=== PATIENT | female | born 1945 | race Caucasian/White ===

== ENCOUNTER 2018-11-28 05:50 | Emergency (ER) | payer MEDICARE, BC ==
[2018-11-28] MEDS ORDERED: Alum Hydrox/Mag Hydrox/Simeth 30 ML, Lidocaine 2% 15 ML PO ONE ×2 (06:14)
--- NOTE | 2018-11-28 06:14 | EDM.PDOC ---
<Arnoldo Valentin - Last Filed: 11/28/18 07:53> ED HPI GENERAL MEDICAL PROBLEM - General Chief Complaint: Abdominal Pain Stated Complaint: HEARTBURN PAIN Time Seen by Provider: 11/28/18 06:09 - Related Data Allergies Allergy/AdvReac Type Severity Reaction Status Date / Time No Known Allergies Allergy Verified 11/28/18 06:01 Home Meds: Home Meds Levothyroxine Sodium 88 mcg PO DAILY 03/04/14 [History] Alendronate Sodium [Fosamax] 1 tab PO WEEKLY 11/28/18 [History] Hyoscyamine Sulfate [Levsin-Sl] 0.125 mg SL ASDIRECTED #8 tab.subl 11/28/18 [Rx] Course - Vital Signs Last Recorded V/S: Last Vital Signs Temp 36.5 C 11/28/18 05:57 Pulse 78 11/28/18 05:57 Resp 18 11/28/18 05:57 BP 164/90 H 11/28/18 05:57 Pulse Ox 97 11/28/18 05:57 - Orders/Labs/Meds Labs: Laboratory Tests 11/28/18 11/28/18 Range/Units 06:30 06:30 WBC 6.05 (3.98-10.04) K/mm3 RBC 4.56 (3.98-5.22) M/mm3 Hgb 13.9 (11.2-15.7) gm/L Hct 41.9 (34.1-44.9) % MCV 91.9 (79.4-94.8) fl MCH 30.5 (25.6-32.2) pg MCHC 33.2 (32.2-35.5) g/dl RDW Std Deviation 42.7 (36.4-46.3) fL Plt Count 297 (182-369) K/mm3 MPV 9.5 (9.4-12.3) fl Neutrophils % (Manual) 77 H (40-60) % Band Neutrophils % 7 (0-10) % Lymphocytes % (Manual) 13 L (20-40) % Atypical Lymphs % 0 % Monocytes % (Manual) 2 (2-10) % Eosinophils % (Manual) 0 L (0.7-5.8) % Basophils % (Manual) 1 (0.1-1.2) Platelet Estimate Adequate RBC Morph Comment Normal Sodium 135 L (136-145) mEq/L Potassium 4.2 (3.5-5.1) mEq/L Chloride 100 (98-107) mEq/L Carbon Dioxide 24 (21-32) mEq/L Anion Gap 15.2 H (5-15) BUN 13 (7-18) mg/dL Creatinine 1.1 H (0.55-1.02) mg/dL Est Cr Clr Drug Dosing 38.16 mL/min Estimated GFR (MDRD) 48 (>60) mL/min BUN/Creatinine Ratio 11.8 L (14-18) Glucose 128 H (83-115) mg/dL Calcium 9.5 (8.5-10.1) mg/dL Magnesium 1.7 L (1.8-2.4) mg/dl Total Bilirubin 0.4 (0.2-1.0) mg/dL AST 15 (15-37) U/L ALT 19 (14-59) U/L Alkaline Phosphatase 74 (46-116) U/L CK-MB (CK-2) 0.9 (0-3.6) ng/ml Troponin I < 0.017 (0.00-0.056) ng/mL Total Protein 7.6 (6.4-8.2) g/dl Albumin 3.7 (3.4-5.0) g/dl Globulin 3.9 gm/dL Albumin/Globulin Ratio 1.0 (1-2) Lipase 64 L (73-393) U/L Meds: Medications Discontinued Medications Generic Name Dose Route Start Last Admin Trade Name Freq PRN Reason Stop Dose Admin Al Hydroxide/Mg Hydroxide 30 0 ml 11/28/18 06:14 11/28/18 06:30 ml/ Lidocaine HCl 15 ml PO 11/28/18 06:15 45 ml ONETIME ONE Administration Dicyclomine HCl 20 mg 11/28/18 06:49 11/28/18 06:54 Bentyl PO 11/28/18 06:50 20 mg ONETIME ONE Administration Hydromorphone HCl 0.25 mg 11/28/18 06:50 11/28/18 07:52 Dilaudid IVPUSH 11/28/18 06:51 Not Given ONETIME ONE Hyoscyamine 0.125 mg 11/28/18 06:49 11/28/18 06:54 Hyomax-Sl SL 11/28/18 06:50 0.125 mg ONETIME ONE Administration Sodium Chloride 1,000 mls @ 125 mls/hr 11/28/18 06:30 11/28/18 06:30 Normal Saline IV 125 mls/hr ASDIRECTED MELVIN Administration Metoclopramide HCl 7.5 mg 11/28/18 06:49 11/28/18 07:52 Reglan IVPUSH 11/28/18 06:50 Not Given ONETIME ONE - Re-Assessments/Exams Free Text/Narrative Re-Assessment/Exam: 11/28/18 07:34 Labs nondiagnostic. She continues to do well we will discharge on Levsin Departure - Departure Time of Disposition: 07:53 Disposition: Home, Self-Care 01 Clinical Impression: Hiatal hernia with GERD Abdominal pain Qualifiers: Abdominal location: epigastric Qualified Code(s): R10.13 - Epigastric pain - Discharge Information Prescriptions: Hyoscyamine Sulfate [Levsin-Sl] 0.125 mg SL ASDIRECTED #8 tab.subl Instructions: Hiatal Hernia Referrals: Bailee Bacon SOLDER TECHNICIAN [Primary Care Provider] - Forms: ED Department Discharge Additional Instructions: Evaluation the emergency room today in regards to persistent epigastric abdominal pain since 11:00 last night. Relieved by burping and belching. History of reflux disease that is been more frequent as of late. Examination did not reveal any obvious source of the pain. Heart tracing did not show any signs of heart related illness. Chest x-ray was normal. X-ray of the abdomen showed some increased stool in the right hemicolon but no sign of bowel obstruction. The working diagnosis was likely hiatal hernia which means stomach is herniated up into the lower chest cavity. You're treated in the ED with a GI cocktail with no relief of the discomfort. Levsin under the tongue and Bentyl 20 mg by mouth did seem to relieve the discomfort. <Marcelo Jovel - Last Filed: 11/30/18 07:01> ED HPI GENERAL MEDICAL PROBLEM - General Source of Information: Reports: Patient History Limitations: Reports: No Limitations - History of Present Illness INITIAL COMMENTS - FREE TEXT/NARRATIVE: 73-year-old female presents to the ED with persistent epigastric lower retrosternal discomfort since about 2300 hrs. last night. Burping and belching seems to help a little bit. Patient has had more heartburn over the last month or so. She took some Coke middle of the night and did get some extra burping from this. She then vomited a bit of it as well. She is mildly nauseated with the pain. It does not radiate through to her back. Breathing doesn't make it any worse. Is no known history of heart disease. Has known high cholesterol. Has no true odynophagia. Took 6 Tums for relief of the discomfort overnight with no relief. Onset: Gradual Onset Date: 11/27/18 Onset Time: 23:00 Duration: Hour(s):, Constant Location: Reports: Chest, Abdomen (epigastrium) Quality: Reports: Ache, Pressure Severity: Moderate Improves with: Reports: None Worsens with: Reports: None Context: Reports: Other (Spontaneous occurrence). Denies: Activity, Exercise, Lifting, Sick Contact, Trauma Associated Symptoms: Reports: Chest Pain, Loss of Appetite, Malaise, Nausea/ Vomiting (Vomited a small amount of Coke). Denies: Confusion, Cough (Lower retrosternal pressure discomfort. 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 Denies: Fever, Chills, Malaise, Weakness, Fatigue, Weight Loss HEENT: Reports: Glasses Respiratory: Reports: No Symptoms Cardiovascular: Reports: Chest Pain. Denies: Blood Pressure Problem, Claudication (Not usually but blood pressure is elevated upon arrival in the ED. 0.60 4/90), Dyspnea on Exertion, Edema, Lightheadedness, Orthopnea Endocrine: Reports: No Symptoms GI/Abdominal: Reports: Abdominal Pain. Denies: Anorexia, Black Stool, Bloody Stool, Constipation, Diarrhea, Decreased Appetite, Difficulty Swallowing, Distension, Flatus, Hematemesis, Hematochezia, Melena : Reports: Frequency Musculoskeletal: Reports: Joint Pain (Some joint pain knees hips and back.) Skin: Reports: No Symptoms Neurological: Reports: No Symptoms Psychiatric: Reports: No Symptoms Hematologic/Lymphatic: Reports: No Symptoms Immunologic: Reports: No Symptoms ED EXAM, GI/ABD - Physical Exam Exam: See Below Exam Limited By: No Limitations General Appearance: Alert, WD/WN, No Apparent Distress, Other (Vital signs are all stable.) Eyes: Bilateral: Normal Appearance Head: Atraumatic, Normocephalic Neck: Normal Inspection, Supple, Non-Tender, Full Range of Motion. No: Carotid Bruit, Lymphadenopathy (L), Lymphadenopathy (R) Respiratory/Chest: No Respiratory Distress, Lungs Clear, Normal Breath Sounds, No Accessory Muscle Use, Chest Non-Tender Cardiovascular: Normal Peripheral Pulses, Regular Rate, Rhythm, No Edema, No Gallop, No Murmur, No Rub GI/Abdominal Exam: Normal Bowel Sounds, Soft, Non-Tender, No Organomegaly, No Abnormal Bruit, No Mass, Pelvis Stable, Other (No evidence of gallbladder related illness. It is not worsened by deep palpation in the epigastrium.) Extremities: Normal Inspection, Normal Range of Motion, Non-Tender, No Pedal Edema Neurological: Alert, Oriented, CN II-XII Intact, Normal Cognition, Normal Gait Psychiatric: Normal Affect, Normal Mood Skin Exam: Warm, Dry, Intact, Normal Color, No Rash EKG INTERPRETATION EKG Date: 11/28/18 Time: 06:20 Rhythm: NSR Rate (Beats/Min): 74 [place]: LAD-Left [place] Deviation (-25) P-Wave: Present QRS: Other (There is early R-wave transition V2 and then delayed her very poor R -wave progression V3 to V6. There are near Q-wave in lead 3 and a Q-wave in aVF. Consider old inferior wall myocardial infarction. There is decreased voltage in both limb and precordial leads.) ST-T: Other (Some T-wave flattening in lead 3 nonspecific finding.) QT: Prolonged (Borderline prolonged) EKG Interpretation Comments: Abnormal ECG Course - Orders/Labs/Meds Labs: Laboratory Tests 11/28/18 11/28/18 Range/Units 06:30 06:30 WBC 6.05 (3.98-10.04) K/mm3 RBC 4.56 (3.98-5.22) M/mm3 Hgb 13.9 (11.2-15.7) gm/L Hct 41.9 (34.1-44.9) % MCV 91.9 (79.4-94.8) fl MCH 30.5 (25.6-32.2) pg MCHC 33.2 (32.2-35.5) g/dl RDW Std Deviation 42.7 (36.4-46.3) fL Plt Count 297 (182-369) K/mm3 MPV 9.5 (9.4-12.3) fl Neutrophils % (Manual) 77 H (40-60) % Band Neutrophils % 7 (0-10) % Lymphocytes % (Manual) 13 L (20-40) % Atypical Lymphs % 0 % Monocytes % (Manual) 2 (2-10) % Eosinophils % (Manual) 0 L (0.7-5.8) % Basophils % (Manual) 1 (0.1-1.2) Platelet Estimate Adequate RBC Morph Comment Normal Sodium 135 L (136-145) mEq/L Potassium 4.2 (3.5-5.1) mEq/L Chloride 100 (98-107) mEq/L Carbon Dioxide 24 (21-32) mEq/L Anion Gap 15.2 H (5-15) BUN 13 (7-18) mg/dL Creatinine 1.1 H (0.55-1.02) mg/dL Est Cr Clr Drug Dosing 38.16 mL/min Estimated GFR (MDRD) 48 (>60) mL/min BUN/Creatinine Ratio 11.8 L (14-18) Glucose 128 H (83-115) mg/dL Calcium 9.5 (8.5-10.1) mg/dL Magnesium 1.7 L (1.8-2.4) mg/dl Total Bilirubin 0.4 (0.2-1.0) mg/dL AST 15 (15-37) U/L ALT 19 (14-59) U/L Alkaline Phosphatase 74 (46-116) U/L CK-MB (CK-2) 0.9 (0-3.6) ng/ml Troponin I < 0.017 (0.00-0.056) ng/mL Total Protein 7.6 (6.4-8.2) g/dl Albumin 3.7 (3.4-5.0) g/dl Globulin 3.9 gm/dL Albumin/Globulin Ratio 1.0 (1-2) Lipase 64 L (73-393) U/L Meds: Medications Discontinued Medications Generic Name Dose Route Start Last Admin Trade Name Alirioq PRN Reason Stop Dose Admin Al Hydroxide/Mg Hydroxide 30 0 ml 11/28/18 06:14 11/28/18 06:30 ml/ Lidocaine HCl 15 ml PO 11/28/18 06:15 45 ml ONETIME ONE Administration Dicyclomine HCl 20 mg 11/28/18 06:49 11/28/18 06:54 Bentyl PO 11/28/18 06:50 20 mg ONETIME ONE Administration Hydromorphone HCl 0.25 mg 11/28/18 06:50 11/28/18 07:52 Dilaudid IVPUSH 11/28/18 06:51 Not Given ONETIME ONE Hyoscyamine 0.125 mg 11/28/18 06:49 11/28/18 06:54 Hyomax-Sl SL 11/28/18 06:50 0.125 mg ONETIME ONE Administration Sodium Chloride 1,000 mls @ 125 mls/hr 11/28/18 06:30 11/28/18 06:30 Normal Saline IV 125 mls/hr ASDIRECTED MELVIN Administration Metoclopramide HCl 7.5 mg 11/28/18 06:49 11/28/18 07:52 Reglan IVPUSH 11/28/18 06:50 Not Given ONETIME ONE - Radiology Interpretation Free Text/Narrative:: 73-year-old female attends the ED with persistent epigastric lower retrosternal pressure discomfort since 11:00 last night. It started after she went to bed. She never slept the rest of the night because of the discomfort. Burping and belching seems to give her some relief of the discomfort but not total relief. She has a history of GERD and is been more active the last month or so. She took 6 times during the night however with no relief of the discomfort. The pain does not radiate through to her back or into her neck or arms. Her ECG does not show any signs of acute ischemia. Lungs are clear to auscultation percussion. Benign abdominal exam. Clinical suspicion is that of a hiatal hernia that his slid up into her chest. Plan GI cocktail and see if this provides any relief. X-ray of her chest and abdomen to be done one view each routine labs including cardiac markers and serum lipase. Clinically there was no evidence of gallbladder related illness. - Re-Assessments/Exams Free Text/Narrative Re-Assessment/Exam: 11/28/18 06:48 patient reports no relief with the GI cocktail. He is aware of a spasm type pain in the pit of her stomach this is highly suggestive of a hiatal hernia. I will give her a small dose of Dilaudid as she is quite sensitive to pain medication usually causing nausea and vomiting. Will give Reglan 7.5 mg IV first followed by 0.25 mg of Dilaudid. We'll also give her Bentyl 20 mg by mouth aND lEVSIN 0.125MG S/L. 11/28/18 07:07 just as the patient was about to receive the Reglan and Dilaudid she reported that her pain completely went away. Appears that the Levsin under the tongue did the trick. This strongly suggests that it was hiatal hernia pain that caused her discomfort. Care will be turned over to Dr. Valentin as it is change of shift. Chest x-ray is within normal limits. X-ray the hand shows some increased stool in the right hemicolon but no signs of bowel obstruction. Labs are pending. 11/28/18 07:10 Labs reveal a normal white count at 6.05. 77% neutrophils and 7% band cells however. Hemoglobin is 13.9 with hematocrit of 41.9. Reticulocyte count 297,000. Sodium 135 with a potassium of 4.2..[id number] with a bicarbonate 24. And a gap is 15.2. BUNs 13 with a creatinine of 1.1. GFR is 48. Glucose 128. Calcium 9.5. Magnesium is 1.7. Bilirubin 0.4. AST 15 ALT 19 alk phosphatase 74. CK-MB fraction is 0.9 with troponin I of less than 0.017. Lipase is 64 Departure - Departure Condition: Fair - Discharge Information *PRESCRIPTION DRUG MONITORING PROGRAM REVIEWED*: Not Applicable *COPY OF PRESCRIPTION DRUG MONITORING REPORT IN PATIENT DWAIN: Not Applicable
[2018-11-28] MEDS ORDERED: Sodium Chloride 0.9% 1,000 ML IV SCH (06:30)
[2018-11-28] MEDS ORDERED: Hyoscyamine 0.125 MG Tab.SL SL ONE (06:49)
[2018-11-28] MEDS ORDERED: Dicyclomine 10 MG Cap PO ONE (06:49)
[2018-11-28] MEDS ORDERED: Metoclopramide 10 MG/2 ML SDV IVPUSH ONE (06:49)
[2018-11-28] MEDS ORDERED: HYDROmorphone 1 MG/ML Syringe IVPUSH ONE (06:50)
--- NOTE | 2018-11-28 09:28 | CR ---
Abdomen: Supine view of the abdomen was obtained. Comparison: No prior abdominal x-ray. Bowel gas pattern is normal. Bony structures are within normal limits. Calcifications are seen within the pelvis which are compatible with phleboliths. Impression: 1. Nothing acute is seen on supine abdominal x-ray. Diagnostic code #2
--- NOTE | 2018-11-28 09:28 | CR ---
Chest: Frontal view of the chest was obtained. Comparison: Prior chest x-ray of 10/27/11. Heart size and mediastinum are within normal limits. Mild bibasilar atelectasis is seen. Lungs otherwise are clear. Bony structures are grossly intact. Impression: 1. Slight bibasilar atelectasis, nothing acute seen on frontal chest x-ray. Diagnostic code #2
== END 2018-11-28 08:18 | disposition home or self-care (01) ==
LOC: JD.ED 05:50
DX: K44.9 Diaphragmatic hernia without obstruction or gangrene (principal); K21.9 Gastro-esophageal reflux disease without esophagitis; Z79.899 Other long term (current) drug therapy
CPT/HCPCS: 36415; 71045; 74018; 80053; 82553; 83690; 83735; 84484; 85007; 85027; 93005; 96360; 99284; A9270; J7040; 93010; 99285